=== PATIENT | female | born 1965 | race Caucasian/White ===

== ENCOUNTER 2023-02-08 20:28 | Emergency (ER) | payer OTHER ==
[2023-02-08 20:46] VITALS: BP 170/90; O2SAT 98
[2023-02-08] MEDS ORDERED: SODIUM CHLORIDE 0.9% 1,000 ML IV STA (20:55)
[2023-02-08 21:01] LABS: BASOPHILS # (AUTO) 0.1 10^3/uL (0.0-0.1); BASOPHILS % (AUTO) 0.9 %; EOSINOPHILS # (AUTO) 0.2 10^3/uL (0.0-0.7); EOSINOPHILS % (AUTO) 2.4 %; HCT - HEMATOCRIT 46.1 % (37.0-47.0); HGB - HEMOGLOBIN 15.2 g/dL (12.0-16.0); LYMPHOCYTES # (AUTO) 1.9 10^3/uL (1.5-3.5); LYMPHOCYTES % (AUTO) 20.2 %; MEAN CORPUSCULAR HEMOGLOBIN 28.6 pg (27.0-31.0); MEAN CORPUSCULAR VOLUME 86.8 fL (81.0-99.0); MEAN PLATELET VOLUME 11.6 fL (7.9-10.8); MONOCYTES # (AUTO) 0.5 10^3/uL (0.0-1.0); MONOCYTES % (AUTO) 5.6 %; NEUTROPHILS # (AUTO) 6.6 10^3/uL (1.5-6.6); NEUTROPHILS % (AUTO) 70.7 %; PLT - PLATELET COUNT 220 10^3/uL (130-450); RED BLOOD COUNT 5.31 10^6/uL (4.20-5.40); WHITE BLOOD COUNT 9.4 x10^3/uL (4.8-10.8)
[2023-02-08 21:14] LABS: ALBUMIN 4.7 g/dL (3.2-5.5); ALBUMIN/GLOBULIN RATIO 1.6 (1.0-2.2); BILIRUBIN,TOTAL 0.4 mg/dL (0.2-1.0); CALCIUM 10.3 mg/dL (8.5-10.3); CREATININE 0.8 mg/dL (0.6-1.3); POTASSIUM 3.7 mmol/L (3.5-4.5); TOTAL PROTEIN 7.7 g/dL (6.4-8.9)
[2023-02-08] MEDS ORDERED: diphenhydrAMINE INJ 50 MG/ML VIAL IVP STA (21:23)
[2023-02-08] MEDS ORDERED: methylPREDNISolone SUCCINATE 125 MG/2 ML VIAL IVP STA (21:23)
[2023-02-08 21:25] LABS: BILIRUBIN,URINE SMALL (NEGATIVE); GLUCOSE, URINE (UA) NEGATIVE (NEGATIVE); KETONES,URINE (UA) TRACE mg/dL (NEGATIVE); LEUKOCYTE ESTERASE, URINE MODERATE (NEGATIVE); NITRITE,URINE POSITIVE (NEGATIVE); OCCULT BLOOD,URINE LARGE (NEGATIVE); PH,URINE 6.5 PH (5.0-7.5); PROTEIN,URINE >=300 mg/dL (NEGATIVE); UROBILINOGEN,URINE 1 (NORMAL) E.U./dL (NORMAL)
--- NOTE | 2023-02-08 21:27 | ED Physician Documentation ---
PD HPI FEMALE - Stated complaint Stated Complaint: - Chief complaint Chief Complaint: Abd Pain - History obtained from History obtained from: Patient - History of Present Illness Timing - onset: How many hours ago (2) - Additional information Additional information: 57-year-old female with hx of cervical cancer (remission since 2019 s/p total abdominal hysterectomy) [place] by private [place] for [place] hematuria and urinary frequency. Patient states that she is here on vacation visiting her children and has been in her usual state of health up until approximately 2 hours ago, when she went to the restroom. She initially noticed a pink tinge to her urine which progressed to bright red blood and blood clots. This has never happened before. Review of Systems Constitutional: denies: Fever, Chills Cardiac: denies: Chest pain / pressure, Palpitations, Calf pain Respiratory: denies: Dyspnea, Cough, Wheezing GI: denies: Abdominal Pain, Nausea, Vomiting, Constipation, Diarrhea : reports: Frequency, Hematuria. 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 : None HEENT: None Psych: None Musculoskeletal: Osteoarthritis Derm: None - Past Surgical History Past Surgical History: Yes Ortho: Rotator cuff repair, Carpal Tunnel surgery - Present Medications Home Medications: Ambulatory Orders Medication Instructions Recorded Confirmed Cefpodoxime Proxetil [Vantin] 200 mg PO Q12H #14 tablet 02/09/23 - Allergies Allergies/Adverse Reactions: Allergies Allergy/AdvReac Type Severity Reaction Status Date / Time iodine Allergy Intermediate Hives Verified 02/08/23 21:42 morphine Allergy Emesis Verified 02/08/23 20:40 Sulfa (Sulfonamide Allergy Anaphylaxis Verified 02/08/23 20:40 Antibiotics) - Social History Does the pt smoke?: No Smoking Status: Never smoker Does the pt drink ETOH?: No Does the pt have substance abuse?: No - Immunizations Immunizations are current?: Yes - POLST Patient has POLST: No PD ED PE NORMAL - Vitals Vital signs reviewed: Yes - General General: Alert and oriented X 3, No acute distress, Well developed/nourished - HEENT HEENT: Atraumatic - Neck Neck: Supple, no meningeal sign - Cardiac Cardiac: RRR, Strong equal pulses - Respiratory Respiratory: No respiratory distress, Clear bilaterally - Abdomen Abdomen: Soft, Non tender, Non distended - Back Back: No CVA TTP, No spinal TTP - Derm Derm: Normal color, Warm and dry, No rash - Extremities Extremities: No deformity, No tenderness to palpate, Normal ROM s pain, No edema - Neuro Neuro: Alert and oriented X 3, fermenting 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 2-12 intact, No motor deficit, Normal speech - Psych Psych: Normal mood, Normal affect Results - Vitals Vitals: Vital Signs - 24 hr 02/08/23 20:40 Temperature 36.5 C Heart Rate 100 Respiratory 16 Rate Blood Pressure 170/90 H O2 Saturation 98 Oxygen O2 Source Room air - Labs Labs: Laboratory Tests 02/08/23 02/08/23 02/08/23 20:18 20:56 20:56 WBC 9.4 RBC 5.31 Hgb 15.2 Hct 46.1 MCV 86.8 MCH 28.6 MCHC 33.0 RDW 12.0 Plt Count 220 MPV 11.6 H Neut # (Auto) 6.6 Lymph # (Auto) 1.9 Glenn # (Auto) 0.5 Eos # (Auto) 0.2 Baso # (Auto) 0.1 Absolute Nucleated RBC 0.00 Nucleated RBC % 0.0 PT 11.4 INR 1.1 Sodium Potassium Chloride Carbon Dioxide Anion Gap BUN Creatinine Estimated GFR (MDRD) Glucose Calcium Total Bilirubin AST ALT Alkaline Phosphatase Total Protein Albumin Globulin Albumin/Globulin Ratio Urine Color RED/BLOODY Urine Clarity CLOUDY Urine pH 6.5 Ur Specific [place] 1.020 Urine Protein >=300 H Urine Glucose (UA) NEGATIVE Urine Ketones TRACE Urine Occult Blood LARGE H Urine Nitrite POSITIVE H Urine Bilirubin SMALL H Urine Urobilinogen 1 (NORMAL) Ur Leukocyte Esterase MODERATE H Urine RBC TNTC H Urine WBC 4-5 Ur Squamous Epith Cells RARE Squamous Urine Bacteria Rare Ur Microscopic Review INDICATED Urine Culture Comments INDICATED 02/08/23 20:56 WBC RBC Hgb Hct MCV MCH MCHC RDW Plt Count MPV Neut # (Auto) Lymph # (Auto) Glenn # (Auto) Eos # (Auto) Baso # (Auto) Absolute Nucleated RBC Nucleated RBC % PT INR Sodium 139 Potassium 3.7 Chloride 101 Carbon Dioxide 30 Anion Gap 8.0 BUN 10 Creatinine 0.8 Estimated GFR (MDRD) 74 L Glucose 195 H Calcium 10.3 Total Bilirubin 0.4 AST 24 ALT 38 Alkaline Phosphatase 93 Total Protein 7.7 Albumin 4.7 Globulin 3.0 Albumin/Globulin Ratio 1.6 Urine Color Urine Clarity Urine pH Ur Specific [place] Urine Protein Urine Glucose (UA) Urine Ketones Urine Occult Blood Urine Nitrite Urine Bilirubin Urine Urobilinogen Ur Leukocyte Esterase Urine RBC Urine WBC Ur Squamous Epith Cells Urine Bacteria Ur Microscopic Review Urine Culture Comments PD Medical Decision Making - ED course Complexity details: reviewed results, re-evaluated patient, considered differential, d/w patient ED course: Well-appearing patient with hamilton hematuria. Patient does have a urine sample that shows bright red blood in the specimen cup. Patient hemodynamically stable, not on blood thinners. Will order labs and CT imaging. Laboratory work shows no acute abnormalities. Hemoglobin is within normal limits, creatinine within normal limits, electrolytes normal. Urinalysis with nitrates, leukocyte esterase, multiple WBCs. CT of the abdomen and pelvis shows thickened bladder wall without any obvious masses or stones. Patient states that she is still urinating blood with some clots. I recommended Kelly placement for bladder irrigation. Patient in agreement at this time. While waiting in the emergency department patient changed her mind stating that she did not want to stay for bladder irrigation. She states that her most recent trip to the restroom was red, but there were no clots present. Patient will be treated with antibiotics for cystitis, I strongly recommended follow-up with urology. Patient is here on vacation and from the [place] area, however she states that she does have a primary care physician and will speak with them about referral to urology as soon as she returns after the weekend. She was advised that if her symptoms worsen, if she is unable to urinate, or if she has any other complaints she should return immediately to the emergency department for repeat evaluation. Departure - Departure Disposition: 01 Home, Self Care Clinical Impression: Cystitis Hematuria Qualifiers: Hematuria type: gross Qualified Code(s): R31.0 - Gross hematuria Condition: Stable Instructions: ED UTI Cystitis Female Prescriptions: Cefpodoxime Proxetil [Vantin] 200 mg PO Q12H #14 tablet Comments: You were seen today for blood in your urine. Your laboratory work today showed a normal hemoglobin and normal kidney function. Your CT today showed a thickened bladder, which can be found in infection. You do appear to have a urinary tract infection, and this could be causing the blood in your urine, however it is extremely important that you follow-up with urology to make sure that the blood clears and you are evaluated for any other causes of blood in your urine. [place] if you notice worsening bleeding, clots, or unable to urinate I strongly recommend that you return to the emergency department. Antibiotics have been sent to the [facility] in [place] Forms: PCP List Discharge Date/Time: 02/09/23 02:27
[2023-02-08 21:28] LABS: INR 1.1 (0.8-1.2); PT - PROTHROMBIN TIME 11.4 secs (9.9-12.6)
[2023-02-08 21:48] LABS: CLARITY,URINE CLOUDY (CLEAR)
[2023-02-08 21:50] LABS: BACTERIA,URINE Rare /HPF (None Seen); RBC,URINE TNTC /HPF (0-5); SQUAMOUS EPITHELIAL CELL,UR RARE Squamous (<= Few)
[2023-02-08] MEDS ORDERED: iohexoL-300 100 ML VIAL IVP ONE (23:23)
--- NOTE | 2023-02-08 23:51 | CT Report ---
PROCEDURE: ABDOMEN/PELVIS W INDICATIONS: ELIA HEMATURIA CONTRAST: 100 ML OMNI 300 TECHNIQUE: After the administration of intravenous contrast, 5 mm thick sections acquired from the diaphragms to the symphysis. 5 mm thick coronal and sagittal reformats were acquired. For radiation dose reducti on, the following was used: automated exposure control, adjustment of mA and/or kV according to buzz ent size. COMPARISON: None. FINDINGS: Image quality: Excellent. Lung bases and heart: Unremarkable. Liver: No solid mass. Gallbladder and biliary tree: Cholelithiasis without wall thickening. No biliary dilation. Spleen: No splenomegaly. Pancreas: No pancreatic ductal dilation. Adrenals: No adrenal nodule. Kidneys and ureters: Contrast material is seen in the renal collecting systems bilaterally, which com presses evaluation for renal calculus. No contrast material seen in the bladder. No hydronephrosis. N o renal cystic lesion which requires follow up. No solid mass. Kidneys enhance symmetrically. Bowel and peritoneum: No bowel distension. No pathologic free fluid. Lymph nodes: No central or retroperitoneal adenopathy. Surgical clips are seen in the retroperitoneal region. Vessels: No infrarenal aortic aneurysm. PELVIS Reproductive organs: Status post hysterectomy. Bilateral surgical clips. Bladder: Diffuse circumferential bladder wall thickening, greater than expected for the degree of und erdistention. Pelvic lymph nodes: No pelvic adenopathy by size criteria. Bones: No aggressive osseous abnormality. Other: No significant ventral or inguinal hernia. IMPRESSION: 1.Diffuse circumferential bladder wall thickening is suspicious for cystitis. 2.No hydronephrosis. No suspicious upper urothelial lesion. Evaluation for renal calculi is compromis ed by dense contrast material in the renal collecting systems. Reviewed by: Tristan Hoover MD on 02/08/2023 11:50 PM PST Approved by: Tristan Hoover MD on 02/08/2023 11:50 PM PST Station ID: [id number]
[2023-02-09] MEDS ORDERED: LIDOCAINE 2% URO-JET 5 ML SYRINGE UR STA (01:55)
[2023-02-09] MEDS ORDERED: CEFPODOXIME PROXETIL 100 MG TABLET PO SCH (03:00)
== END 2023-02-09 02:27 | disposition home or self-care (01) ==
LOC: ED 20:28
DX: N30.91 Cystitis, unspecified with hematuria (principal)
CPT/HCPCS: 36415; 74177; 80053; 81001; 85025; 85610; 87086; 87181; 99284; A9270; J1200; Q9967; 81003